=== PATIENT | female | born 1990 | race Hispanic/Latino ===

== ENCOUNTER 2019-06-26 12:57 | Emergency (ER) | payer SELFPAY ==
[2019-06-26] MEDS ORDERED: METHYLPREDNISOLONE 125 MG INJ ONE (13:21)
--- NOTE | 2019-06-26 16:48 | EDPHYS ---
Physician Documentation [facility] Name: Sanjay Srinivasan Age: 29 yrs Sex: Female : 1990 Arrival Date: 06/26/2019 Time: 13:06 Bed 20 Private MD: ED Physician Wendy Snell HPI: 06/26 13:29 This 29 yrs old Female presents to ER via Ambulatory with complaints of Allergic jr8 Reaction. 13:29 Onset: The symptoms/episode began/occurred acutely, yesterday. Associated signs and jr8 symptoms: Pertinent positives: itching. Possible causes: cream. Severity of symptoms: At their worst the symptoms were mild in the emergency department the symptoms are unchanged. The patient has not experienced similar symptoms in the past. The patient has not experienced similar symptoms in the past. The patient has been recently seen by a physician:. Patient stated that she was using a new acne cream. Applied it to the face. Since then has had redness and itching to face. Was seen in [place] and was told to take benadryl and zyrtec . 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 - Social history:: Smoking status: Patient/guardian denies using tobacco. - Ebola Screening: : No symptoms or risks identified at this time. ROS: 13:29 Eyes: Negative for injury, pain, redness, and discharge, ENT: Negative for injury, jr8 pain, and discharge, Neck: Negative for injury, pain, and swelling, Cardiovascular: Negative for chest pain, palpitations, and edema, Respiratory: Negative for shortness of breath, cough, wheezing, and pleuritic chest pain, Abdomen/GI: Negative for abdominal pain, nausea, vomiting, diarrhea, and constipation, Back: Negative for injury and pain, MS/Extremity: Negative for injury and deformity, Neuro: Negative for headache, weakness, numbness, tingling, and seizure. 13:29 Skin: Positive for erythema, of the face. Exam: 13:31 Eyes: Pupils equal round and reactive to light, extra-ocular motions intact. Lids and jr8 lashes normal. Conjunctiva and sclera are non-icteric and not injected. Cornea within normal limits. Periorbital areas with no swelling, redness, or edema. ENT: Nares patent. No nasal discharge, no septal abnormalities noted. Tympanic membranes are normal and external auditory canals are clear. Oropharynx with no redness, swelling, or masses, exudates, or evidence of obstruction, uvula midline. Mucous membranes moist. Neck: Trachea midline, no thyromegaly or masses palpated, and no cervical lymphadenopathy. Supple, full range of motion without nuchal rigidity, or vertebral point tenderness. No Meningismus. Cardiovascular: Regular rate and rhythm with a normal S1 and S2. No gallops, murmurs, or rubs. Normal PMI, no JVD. No pulse deficits. Respiratory: Lungs have equal breath sounds bilaterally, clear to auscultation and percussion. No rales, rhonchi or wheezes noted. No increased work of breathing, no retractions or nasal flaring. Abdomen/GI: Soft, non-tender, with normal bowel sounds. No distension or tympany. No guarding or rebound. No evidence of tenderness throughout. Back: No spinal tenderness. No costovertebral tenderness. Full range of motion. Skin: Warm, dry with normal turgor. Normal color with no rashes, no lesions, and no evidence of cellulitis. MS/ Extremity: Pulses equal, no cyanosis. Neurovascular intact. Full, normal range of motion. Neuro: Awake and alert, GCS 15, oriented to person, place, time, and situation. Cranial nerves II-XII grossly intact. Motor strength 5/5 in all extremities. Sensory grossly intact. Cerebellar exam normal. Normal gait. 13:31 Head/face: Noted is patient has erythema to left cheek, forehead and chin present. Mild swelling noted . Vital Signs: 13:08 BP 121 / 64; Pulse 91; Resp 18 S; Temp 98.0(O); Pulse Ox 99% on R/A; Weight 83.01 kg aa5 (R); Height 5 ft. 3 in. (160.02 cm) (R); Pain 0/10; 13:52 BP 120 / 78; Pulse 89; Resp 18; Temp 98; Pulse Ox 100% on R/A; mg2 13:08 Body Mass Index 32.42 (83.01 kg, 160.02 cm) aa5 MDM: 13:12 Patient medically screened. jr8 13:31 Data reviewed: vital signs, nurses notes, and as a result, I will discharge patient. jr8 Data interpreted: Pulse oximetry: on room air is 99 %. Interpretation: normal. Counseling: I had a detailed discussion with the patient and/or guardian regarding: the historical points, exam findings, and any diagnostic results supporting the discharge/admit diagnosis, the need for outpatient follow up, a family practitioner, to return to the emergency department if symptoms worsen or persist or if there are any questions or concerns that arise at home. Administered Medications: 13:24 Drug: SOLU-Medrol 125 mg Route: IM; Site: right gluteus; mg2 13:53 Follow up: Response: No adverse reaction mg2 Disposition: 15:51 Co-signature as Attending Physician, Wendy Snell MD. ma2 Disposition: 06/26/19 13:36 Discharged to Home. Impression: Allergic contact dermatitis. - Condition is Stable. - Discharge Instructions: Contact Dermatitis. - Prescriptions for Prednisone 20 mg Oral Tablet - take 2 tablet by ORAL route once daily for 5 days; 10 tablet. - Medication Reconciliation Form, Thank You Letter, Antibiotic Education, Prescription Opioid Use form. - Follow up: Private Physician; When: 2 - 3 days; Reason: Recheck today's complaints, Continuance of care, Re-evaluation by your physician. - Problem is new. - Symptoms have improved. Signatures: Lynette Edmond RN RN aa5 Ramon Quinn PA PA jr8 Wendy Snell MD MD il2 Jesus Willis RN RN mg2 Corrections: (The following items were deleted from the chart) 13:53 13:36 06/26/2019 13:36 Discharged to Home. Impression: Allergic contact dermatitis. mg2 Condition is Stable. Forms are Medication Reconciliation Form, Thank You Letter, Antibiotic Education, Prescription Opioid Use. Follow up: Private Physician; When: 2 - 3 days; Reason: Recheck today's complaints, Continuance of care, Re-evaluation by your physician. Problem is new. Symptoms have improved. jr8 13:53 13:53 06/26/2019 13:36 Discharged to Home. Impression: Allergic contact dermatitis. mg2 Condition is Stable. Discharge Instructions: Contact Dermatitis. Prescriptions for Prednisone 20 mg Oral Tablet - take 2 tablet by ORAL route once daily for 5 days; 10 tablet. and Forms are Medication Reconciliation Form, Thank You Letter, Antibiotic Education, Prescription Opioid Use. Follow up: Private Physician; When: 2 - 3 days; Reason: Recheck today's complaints, Continuance of care, Re-evaluation by your physician. Problem is new. Symptoms have improved. mg2
--- NOTE | 2019-06-26 16:49 | ER ---
Nurse's Notes [facility] Name: Sanjay Srinivasan Age: 29 yrs Sex: Female : 1990 Arrival Date: 06/26/2019 Time: 13:06 Bed 20 Private MD: Diagnosis: Allergic contact dermatitis Presentation: 06/26 13:06 Presenting complaint: Patient states: redness and swelling to left side of face that aa5 began 2 days ago. Pt reports being seen at [facility] last night and was instructed to take Benadryl but symptoms got worse. Pt states "I have acne and I put on a cream and I think that is what it is". Pt reports itching. Transition of care: patient was not received from another setting of care. Care prior to arrival: None. 13:06 Acuity: DIONISIO 4 aa5 13:06 Method Of Arrival: Ambulatory aa5 13:07 Onset of symptoms was June 2019. Risk Assessment: Do you want to hurt yourself or aa5 someone else? Patient reports no desire to harm self or others. Initial Sepsis Screen: Does the patient meet any 2 criteria? No. Patient's initial sepsis screen is negative. Does the patient have a suspected source of infection? No. Patient's initial sepsis screen is negative. 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 - Social history:: Smoking status: Patient/guardian denies using tobacco. - Ebola Screening: : No symptoms or risks identified at this time. Screenin:24 Abuse screen: Denies threats or abuse. Denies injuries from another. Nutritional mg2 screening: No deficits noted. Tuberculosis screening: No symptoms or risk factors identified. Fall Risk None identified. Assessment: 13:24 General: Appears in no apparent distress. comfortable, Behavior is calm, cooperative. mg2 Pain: Denies pain. Neuro: Level of Consciousness is awake, alert, obeys commands, Oriented to person, place, time, situation. Cardiovascular: Capillary refill < 3 seconds Patient's skin is warm and dry. Respiratory: Airway is patent Respiratory effort is even, unlabored, Respiratory pattern is regular, symmetrical. GI: No signs and/or symptoms were reported involving the gastrointestinal system. : No signs and/or symptoms were reported regarding the genitourinary system. EENT: No signs and/or symptoms were reported regarding the EENT system. Derm: Rash noted that is red, raised, urticaria, on face. Musculoskeletal: Circulation, motion, and sensation intact. Capillary refill < 3 seconds. Vital Signs: 13:08 BP 121 / 64; Pulse 91; Resp 18 S; Temp 98.0(O); Pulse Ox 99% on R/A; Weight 83.01 kg aa5 (R); Height 5 ft. 3 in. (160.02 cm) (R); Pain 0/10; 13:52 BP 120 / 78; Pulse 89; Resp 18; Temp 98; Pulse Ox 100% on R/A; mg2 13:08 Body Mass Index 32.42 (83.01 kg, 160.02 cm) aa5 ED Course: 13:06 Patient arrived in ED. aa5 13:07 Triage completed. aa5 13:07 Arm band placed on. aa5 13:11 Ramon Quinn PA is PHCP. jr8 13:11 Wendy Snell MD is Attending Physician. jr8 13:17 Jesus Willis RN is Primary Nurse. mg2 13:25 Patient has correct armband on for positive identification. mg2 13:25 No provider procedures requiring assistance completed. Patient did not have IV access mg2 during this emergency room visit. Administered Medications: 13:24 Drug: SOLU-Medrol 125 mg Route: IM; Site: right gluteus; mg2 13:53 Follow up: Response: No adverse reaction mg2 Outcome: 13:36 Discharge ordered by . jr8 13:52 Discharged to home ambulatory, with family. mg2 13:52 Condition: improved 13:52 Discharge instructions given to patient, family, Instructed on discharge instructions, follow up and referral plans. medication usage, Demonstrated understanding of instructions, follow-up care, medications, Prescriptions given X 1. 13:53 Patient left the ED. mg2 Signatures: Lynette Edmond RN RN aa5 Ramon Quinn PA PA jr8 Jesus Willis RN RN mg2 Corrections: (The following items were deleted from the chart) 13:08 13:06 Presenting complaint: Patient states: redness and swelling to left side of face aa5 that began 2 days ago. Pt reports being seen at [facility] last night and was instructed to take Benadryl but symptoms got worse. aa5
[2019-06-26 16:52] VITALS: BP 120/78; TEMP 98; O2SAT 100
== END 2019-06-26 13:53 | disposition home or self-care (01) ==
LOC: ER 12:57
DX: L23.9 Allergic contact dermatitis, unspecified cause (principal)
CPT/HCPCS: 96372; 99283; J2930